=== PATIENT | female | born 1990 | race African-American/Black ===

== ENCOUNTER 2022-02-16 13:08 | Emergency (ER) | payer OTHER ==
[2022-02-16 13:28] VITALS: BP 128/92; PULSE 91; RESP 16; TEMP 99.2; BMI 34.7
[2022-02-16] MEDS ORDERED: DEXAMETHASONE SOD PHOSPHATE 10 MG/1 ML VIAL PO ONE (13:36)
[2022-02-16] MEDS ORDERED: IBUPROFEN 600 MG TABLET (FP) PO ONE ×2 (13:36→13:38)
[2022-02-16] MEDS ORDERED: DEXAMETHASONE 4 MG TABLET (FP) ONE (13:39)
== END 2022-02-16 14:03 | disposition home or self-care (01) ==
LOC: FER 13:08
DX: J04.0 Acute laryngitis (principal)
CPT/HCPCS: 0241U-QW; 99283-25; J1100